=== PATIENT | female | born 2000 ===

== ENCOUNTER → 2019-09-01 | Outpatient (CLI) | payer OTHER ==
[2019-09-01 18:20] LABS: CHOL/HDL RATIO 7.4; Cholesterol 222 mg/dL (50-200); HDL Cholesterol 30 mg/dL (>39); LDL/HDL RATIO 5.1; Low Density Lipoprotein Chol 154 mg/dL (0-110); Triglycerides 188 mg/dL (30-140); Very Low Density Lipoprot Chol 37 mg/dL (6-28)
== END | disposition home or self-care (01) ==
LOC: LAB 16:58 → LAB SHORT 16:58
PROVIDERS: Nurse Practitioner Family
DX: Z00.00 Encounter for general adult medical examination without abnormal findings (principal); K21.9 Gastro-esophageal reflux disease without esophagitis
CPT/HCPCS: 80061

== ENCOUNTER → 2020-10-11 | Outpatient (CLI) | payer OTHER | END | disposition home or self-care (01) | LOC: LAB 17:51 → LAB SHORT 17:51 | PROVIDERS: Nurse Practitioner | DX: Z12.4 Encounter for screening for malignant neoplasm of cervix (principal) | CPT/HCPCS: G0123 ==